=== PATIENT | female | born 1945 | race Caucasian/White ===

== ENCOUNTER 2022-05-31 23:31 | Emergency (ER) | payer OTHER ==
[2022-05-31 23:40] VITALS: BP 119/79; PULSE 76; RESP 20; TEMP 97.9; BMI 30.2
[2022-06-01 01:17] LABS: BASO % 0.7 % (0-2.0); EOS % 3.8 % (0-4.5); HEMATOCRIT 30.6 % (32.4-45.2); HEMOGLOBIN 10.2 GM/dL (10.7-15.3); LYMPH % 24.5 % (8-40); MCH 30.9 pg (25.7-33.7); MCHC 33.3 g/dl (32.0-36.0); MEAN CELL VOLUME 92.7 fl (80-96); MEAN PLT VOLUME 8.3 fl (7.5-11.1); MONO % 12.8 % (3.8-10.2); NEUT % 58.2 % (42.8-82.8); PLATELET COUNT 230 10^3/uL (134-434); RDW 13.1 % (11.6-15.6)
[2022-06-01 01:37] LABS: BLOOD UREA NITROGEN 47.6 mg/dL (7-18)
[2022-06-01 01:38] LABS: ALBUMIN 3.9 g/dl (3.4-5.0); MAGNESIUM 2.4 mg/dL (1.8-2.4)
[2022-06-01 01:41] LABS: CREATININE 1.2 mg/dL (0.55-1.3)
[2022-06-01 01:42] LABS: BILIRUBIN,TOTAL 0.3 mg/dL (0.2-1); TOT PROT 7.4 g/dl (6.4-8.2)
[2022-06-01 01:46] LABS: N-TERMINAL BNP 225.3 pg/ml (5-450)
== END 2022-06-01 02:26 | disposition home or self-care (01) ==
LOC: JER 23:31
DX: R22.42 Localized swelling, mass and lump, left lower limb (principal); R22.41 Localized swelling, mass and lump, right lower limb
CPT/HCPCS: 36415; 71046-TC-FY; 80053; 83735; 83880; 84484; 85025; 93005; 93010; 93970-TC; 99285-25

== ENCOUNTER 2022-07-17 15:20 | Emergency (ER) | payer OTHER ==
[2022-07-17 15:41] VITALS: BP 99/39; PULSE 74; RESP 18; TEMP 98; BMI 30.2
[2022-07-17] MEDS ORDERED: KETOROLAC TROMETHAMINE 30 MG/1 ML VIAL IM ONE (15:57)
[2022-07-17] MEDS ORDERED: KETOROLAC TROMETHAMINE 30 MG/1 ML VIAL ONE (16:03)
[2022-07-17] MEDS ORDERED: LIDOCAINE 5% TOPICAL PATCH TP ONE (16:06)
[2022-07-17] MEDS ORDERED: LIDOCAINE 5% TOPICAL PATCH ONE (17:17)
[2022-07-17] MEDS ORDERED: LIDOCAINE PATCH REMOVAL MC SCH (22:00)
== END 2022-07-17 18:16 | disposition home or self-care (01) ==
LOC: FER 15:20
PROC: 3E0233Z Introduction of Anti-inflammatory into Muscle, Percutaneous Approach (ICD-10-PCS; principal; 2022-07-17)
DX: M25.551 Pain in right hip (principal)
CPT/HCPCS: 73030-TC-RT-FY; 73502-TC-RT-FY; 99284-25

== ENCOUNTER 2022-10-13 19:06 | Emergency (ER) | payer OTHER ==
[2022-10-13] MEDS ORDERED: KETOROLAC TROMETHAMINE 30 MG/1 ML VIAL IM ONE (19:32)
[2022-10-13 19:33] VITALS: BP 150/88; PULSE 95; RESP 18; TEMP 98.7; BMI 31.4
[2022-10-13] MEDS ORDERED: KETOROLAC TROMETHAMINE 30 MG/1 ML VIAL ONE (19:35)
== END 2022-10-13 20:48 | disposition home or self-care (01) ==
LOC: FER 19:06
PROC: 3E0233Z Introduction of Anti-inflammatory into Muscle, Percutaneous Approach (ICD-10-PCS; principal; 2022-10-13)
DX: M79.604 Pain in right leg (principal); M54.41 Lumbago with sciatica, right side
CPT/HCPCS: 72170-TC-FY; 73502-TC-RT-FY; 99284-25

== ENCOUNTER 2023-12-22 18:25 | Emergency (ER) | payer OTHER ==
[2023-12-22 18:56] VITALS: BP 158/95; PULSE 71; RESP 16; TEMP 98.7; BMI 21.7
[2023-12-22] MEDS ORDERED: LIDOCAINE 5% TOPICAL PATCH ONE (19:56)
[2023-12-22] MEDS ORDERED: KETOROLAC TROMETHAMINE 60 MG/2 ML VIAL ONE (20:18)
[2023-12-22] MEDS: LIDOCAINE 5% TOPICAL PATCH TP ONE (20:36)
[2023-12-22] MEDS: KETOROLAC TROMETHAMINE 60 MG/2 ML VIAL IM ONE (20:39)
[2023-12-23] MEDS ORDERED: LIDOCAINE PATCH REMOVAL MC SCH (08:00)
== END 2023-12-22 20:44 | disposition home or self-care (01) ==
LOC: FER 18:25
PROC: 3E0233Z Introduction of Anti-inflammatory into Muscle, Percutaneous Approach (ICD-10-PCS; principal; 2023-12-22)
DX: M25.551 Pain in right hip (principal); G89.29 Other chronic pain
CPT/HCPCS: 72170-TC-FY; 73502-TC-RT-FY; 99284-25

== ENCOUNTER 2024-01-02 19:33 | Observation (INO) | payer OTHER ==
[2024-01-02] MEDS ORDERED: ACETAMINOPHEN 325 MG TABLET (FP) ONE (20:43)
[2024-01-02] MEDS ORDERED: KETOROLAC TROMETHAMINE 15 MG/ML VIAL ONE (20:43)
[2024-01-02] MEDS ORDERED: LIDOCAINE 4% PATCH TP ONE (20:43)
[2024-01-02] MEDS: KETOROLAC TROMETHAMINE 15 MG/ML VIAL IM ONE (20:54)
[2024-01-02] MEDS: LIDOCAINE 4% PATCH TP ONE (20:54)
[2024-01-02] MEDS: ACETAMINOPHEN 325 MG TABLET (FP) PO ONE (20:55)
[2024-01-02 23:40] LABS: BASO % 0.5 % (0-2.0); EOS % 2.4 % (0-4.5); HEMATOCRIT 38.1 % (32.4-45.2); HEMOGLOBIN 12.6 GM/dL (10.7-15.3); LYMPH % 20.5 % (8-40); MCH 29.7 pg (25.7-33.7); MEAN PLT VOLUME 8.7 fl (7.5-11.1); MONO % 10.1 % (3.8-10.2); NEUT % 66.5 % (42.8-82.8); PLATELET COUNT 223 10^3/uL (134-434); RBC 4.23 M/mm3 (3.60-5.2); RDW 14.4 % (11.6-15.6); WHITE BLOOD COUNT 6.5 K/mm3 (4.0-10.0)
[2024-01-02] MEDS: morphine CARPU-JECT 4 MG/1 ML DISP.SYRIN IVPUSH ONE (23:44)
[2024-01-03 00:14] LABS: POTASSIUM 4.3 mmol/L (3.5-5.1)
[2024-01-03 00:15] LABS: CALCIUM 9.6 mg/dL (8.5-10.1)
[2024-01-03 00:16] LABS: ALBUMIN 3.9 g/dl (3.4-5.0); BLOOD UREA NITROGEN 33.1 mg/dL (7-18)
[2024-01-03 00:19] LABS: CREATININE 0.9 mg/dL (0.55-1.3)
[2024-01-03 00:21] LABS: BILIRUBIN,TOTAL 0.3 mg/dL (0.2-1); TOT PROT 7.5 g/dl (6.4-8.2)
[2024-01-03 04:06] VITALS: BMI 23.6
[2024-01-03] MEDS ORDERED: PREGABALIN 25 MG CAPSULE PO ONE (05:32)
[2024-01-03] MEDS ORDERED: traMADol HCL 50 MG TABLET PO PRN ×2 (05:33→07:23)
[2024-01-03] MEDS ORDERED: PREGABALIN 25 MG CAPSULE PO SCH ×3 (06:00→10:00)
[2024-01-03] MEDS: LEVOTHYROXINE NA 75 MCG TABLET (FP) PO SCH (06:54)
[2024-01-03] MEDS: DOCUSATE SODIUM 100 MG CAPSULE (FP) PO SCH (09:27)
[2024-01-03] MEDS: GABAPENTIN 100 MG CAPSULE PO SCH ×2 (09:27→13:26)
[2024-01-03] MEDS: ACETAMINOPHEN 500 MG TABLET (FP) PO SCH (09:27)
[2024-01-03] MEDS: amLODIPine BESYLATE 5 MG TABLET (FP) PO SCH (09:27)
[2024-01-03] MEDS: BISACODYL 10 MG SUPP.RECT PR PRN (09:27)
[2024-01-03] MEDS: FUROSEMIDE 20 MG TABLET (FP) PO SCH (09:27)
[2024-01-03] MEDS: QUEtiapine FUMARATE 25 MG TABLET PO SCH (09:27)
[2024-01-03] MEDS: traMADol HCL 50 MG TABLET PO ONE (09:44)
[2024-01-03] MEDS: RASAGILINE MESYLATE 1 MG TABLET PO SCH (09:46)
[2024-01-03] MEDS: NAPROXEN 500 MG TABLET PO SCH (09:48)
[2024-01-03 10:11] LABS: HEMATOCRIT 36.6 % (32.4-45.2); HEMOGLOBIN 11.7 GM/dL (10.7-15.3); MCH 29.2 pg (25.7-33.7); MCHC 31.9 g/dl (32.0-36.0); MEAN CELL VOLUME 91.4 fl (80-96); MEAN PLT VOLUME 8.9 fl (7.5-11.1); PLATELET COUNT 199 10^3/uL (134-434); RBC 4.01 M/mm3 (3.60-5.2); RDW 14.3 % (11.6-15.6); WHITE BLOOD COUNT 5.8 K/mm3 (4.0-10.0)
[2024-01-03 10:34] LABS: ALBUMIN 3.4 g/dl (3.4-5.0)
[2024-01-03 10:35] LABS: MAGNESIUM 2.3 mg/dL (1.8-2.4)
[2024-01-03 10:38] LABS: PHOSPHOROUS 3.6 mg/dL (2.5-4.9)
[2024-01-03 10:39] LABS: BILIRUBIN,TOTAL 0.5 mg/dL (0.2-1); TOT PROT 6.4 g/dl (6.4-8.2)
[2024-01-03] MEDS ORDERED: HYDROmorphone HCl 2 MG/ML VIAL IVPB PRN (11:10)
[2024-01-03] MEDS: traMADol HCL 50 MG TABLET PO PRN (13:27)
[2024-01-03] MEDS: ATORVASTATIN CA 10 MG TABLET (FP) PO SCH (21:35)
[2024-01-03] MEDS: LIDOCAINE PATCH REMOVAL MC SCH (23:36)
[2024-01-04 04:44] LABS: PH,URINE 6.5 (5.0-8.0); URINE APPEARANCE CLEAR; URINE BILIRUBIN NEGATIVE (NEGATIVE); URINE COLOR YELLOW; URINE GLUCOSE (UA) 3+ (NEGATIVE); URINE KETONE TRACE (NEGATIVE); URINE LEUK ESTERASE NEGATIVE (NEGATIVE); URINE NITRITE NEGATIVE (NEGATIVE); URINE PROTEIN NEGATIVE (NEGATIVE); URINE UROBILINOGEN 0.2 mg/dL (0.2-1.0)
[2024-01-04 06:11] VITALS: RESP 18
[2024-01-04 08:33] LABS: HEMATOCRIT 35.4 % (32.4-45.2); MCH 30.5 pg (25.7-33.7); MCHC 33.9 g/dl (32.0-36.0); MEAN CELL VOLUME 90.1 fl (80-96); MEAN PLT VOLUME 8.6 fl (7.5-11.1); PLATELET COUNT 199 10^3/uL (134-434); RBC 3.93 M/mm3 (3.60-5.2); WHITE BLOOD COUNT 4.3 K/mm3 (4.0-10.0)
[2024-01-04 08:49] LABS: CALCIUM 9.2 mg/dL (8.5-10.1)
[2024-01-04 08:50] LABS: ALBUMIN 3.6 g/dl (3.4-5.0); BLOOD UREA NITROGEN 24.9 mg/dL (7-18)
[2024-01-04 08:53] LABS: CREATININE 0.8 mg/dL (0.55-1.3); TOT PROT 6.8 g/dl (6.4-8.2)
[2024-01-04 08:57] LABS: BILIRUBIN,TOTAL 0.5 mg/dL (0.2-1)
[2024-01-05 10:02] LABS: POTASSIUM 4.2 mmol/L (3.5-5.1)
[2024-01-05 10:11] LABS: ALBUMIN 3.4 g/dl (3.4-5.0); CREATININE 0.9 mg/dL (0.55-1.3)
[2024-01-05 10:12] LABS: BLOOD UREA NITROGEN 19.4 mg/dL (7-18)
[2024-01-05 10:13] LABS: BILIRUBIN,TOTAL 0.4 mg/dL (0.2-1)
[2024-01-05 10:14] LABS: CALCIUM 9.2 mg/dL (8.5-10.1)
[2024-01-05 10:21] LABS: TOT PROT 6.5 g/dl (6.4-8.2)
[2024-01-05 18:12] VITALS: BP 124/72; PULSE 73; TEMP 98
== END 2024-01-05 18:17 | disposition home or self-care (01) ==
LOC: JER 19:33 → UNDOADMOB 01-03 02:09 → JERBED 01-03 02:09 → J5S 01-03 03:42 → JERBED 01-03 03:42 → INTOOBSV 01-03 04:52 → OBSVTOIN 01-03 04:52 → JERBED 01-03 08:51 → J5S 01-03 08:51
PROVIDERS: ADMIT Internal Medicine; ATTEND Internal Medicine
PROC: 3E0233Z Introduction of Anti-inflammatory into Muscle, Percutaneous Approach (ICD-10-PCS; principal; 2024-01-03)
PROC: 3E033NZ Introduction of Analgesics, Hypnotics, Sedatives into Peripheral Vein, Percutaneous Approach (ICD-10-PCS; 2024-01-03)
DX: M25.551 Pain in right hip (principal); R26.2 Difficulty in walking, not elsewhere classified; R94.5 Abnormal results of liver function studies; I10 Essential (primary) hypertension; E11.9 Type 2 diabetes mellitus without complications; E03.9 Hypothyroidism, unspecified; G20.A1 Parkinson's disease without dyskinesia, without mention of fluctuations; J45.909 Unspecified asthma, uncomplicated; Z90.89 Acquired absence of other organs; K76.0 Fatty (change of) liver, not elsewhere classified
CPT/HCPCS: 36415; 72131-TC; 72148-TC; 72192-TC; 74181-TC; 76705-TC; 80053; 80307; 81003; 82105; 82962; 83036; 83735; 84100; 85025; 85027; 87086; 87186; 93005; 93010; 93971-TC; 96372; 96374; 97116-GP; 97161-GP; 99285-25; G0378